=== PATIENT | male | born 1970 | race Two or more races ===

== ENCOUNTER 2021-04-21 21:46 | Inpatient (IN) | payer OTHER ==
[~2021-04-21] VITALS: Ht 175.3 cm; Wt 68.8 kg
--- NOTE | 2021-04-21 23:57 | NUR ---
PT PLACED ON 1L NC DUE TO PT AT 89%
[2021-04-22 00:15] LABS: BASOPHILS % (AUTO) 0 % (0-1); EOSINOPHILS % (AUTO) 3 % (1-7); LYMPHOCYTES % (AUTO) 22 % (22-44); MEAN CORPUSCULAR HEMOGLOBIN 33.3 pg (27.5-34.5); MEAN CORPUSCULAR HGB CONC 35.4 g/dL (33.2-36.2); MEAN PLATELET VOLUME 9.8 fL (7.4-10.4); MICROSCOPIC AUTO; MONOCYTES % (AUTO) 12 % (2-9); NEUTROPHILS % (AUTO) 63 % (42-75); PLATELET COUNT 179 x10^3/uL (130-400); RED BLOOD COUNT 4.97 x10^6/uL (4.38-5.82); RED CELL DISTRIBUTION WIDTH 12.5 % (9.4-14.8)
[2021-04-22 00:16] LABS: MD NO
--- NOTE | 2021-04-22 00:17 | NUR ---
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
[2021-04-22 00:18] LABS: ALANINE AMINOTRANSFERASE 16 U/L (12-78); ANION GAP 10 mmol/L (5-15); CALCIUM 8.7 mg/dL (8.5-10.1); CHLORIDE 102 mmol/L (98-107); CREATININE 0.77 mg/dL (0.7-1.3)
[2021-04-22 00:20] LABS: ALKALINE PHOSPHATASE 90 U/L (45-117); BILIRUBIN,TOTAL 0.5 mg/dL (0.2-1.0); TOTAL PROTEIN 7.9 g/dL (6.4-8.2)
--- NOTE | 2021-04-22 00:30 | NUR ---
First contact with patient: patient presents to ER c/o SOB since yesterday. Patient reports fevers x greater than 1 week. +dry cough. Denies known exposure to COVID; has not received COVID vaccine. Denies resp hx. Patient RA sat 88%. Placed on O2 at 3lpm via NC; SPO2 94%.
[2021-04-22] MEDS ORDERED: IBUPROFEN 600 MG TABLET ONE (00:35)
[2021-04-22] MEDS ORDERED: ALBUTEROL/IPRATROPIUM 2.5MG/0.5MG, 3 ML ONE (00:35)
--- NOTE | 2021-04-22 00:42 | NUR ---
Breathing tx initiated. Patient tolerating well.
[2021-04-22] MEDS ORDERED: BENZONATATE 100 MG CAPSULE ONE (00:46)
[2021-04-22] MEDS ORDERED: CEFTRIAXONE 500 MG in DEXTROSE 5% 50 ML IV SCH (01:00)
[2021-04-22] MEDS: CEFTRIAXONE 1,000 MG in DEXTROSE 5% 50 ML IV SCH (01:00)
[2021-04-22] MEDS ORDERED: IBUPROFEN 600 MG TABLET PO ONE (01:00)
[2021-04-22] MEDS ORDERED: AZITHROMYCIN 500 MG in SODIUM CHLORIDE 0.9% 250 ML IV ONE (01:00)
[2021-04-22] MEDS ORDERED: SODIUM CHLORIDE FLUSH 10ML SYR IVF ONE (01:00)
[2021-04-22] MEDS ORDERED: SODIUM CHLORIDE 0.9% 1,000ML IVBOLUS ONE (01:00)
[2021-04-22] MEDS ORDERED: ALBUTEROL/IPRATROPIUM 2.5MG/0.5MG, 3 ML NPPB ONE (01:00)
[2021-04-22] MEDS ORDERED: BENZONATATE 100 MG CAPSULE PO ONE (01:00)
[2021-04-22] MEDS ORDERED: AZITHROMYCIN 500 MG in SODIUM CHLORIDE 0.9% 250 ML IV SCH (02:00)
--- NOTE | 2021-04-22 02:55 | NUR ---
REPORT TO JACINTO PT TO ROOM WITH TECH
[2021-04-22] MEDS ORDERED: MELATONIN 5 MG TABLET PO PRN (03:00)
[2021-04-22] MEDS ORDERED: OXYcodone IR 5MG TABLET PO PRN (03:00)
[2021-04-22] MEDS ORDERED: ONDANSETRON 2MG/ML, 2ML IVPush PRN (03:00)
[2021-04-22] MEDS ORDERED: TEMAZEPAM 15 MG CAPSULE PO PRN (03:00)
[2021-04-22] MEDS ORDERED: BISACODYL 10 MG SUPP PR PRN (03:00)
[2021-04-22] MEDS ORDERED: hydrALAzine 20 MG/ML, 1ML IVPush PRN (03:00)
[2021-04-22] MEDS ORDERED: ACETAMINOPHEN 325 MG TABLET PO PRN (03:00)
[2021-04-22] MEDS ORDERED: POLYETHYLENE GLYCOL 17 GM PACKET PO PRN (03:00)
[2021-04-22] MEDS ORDERED: LORazepam 2 MG/ML, 1ML IVPush PRN (03:00)
[2021-04-22] MEDS ORDERED: DOCUSATE 100 MG CAPSULE PO PRN (03:00)
[2021-04-22 03:19] VITALS: BP 118/80
[2021-04-22 07:58] VITALS: BP 148/87
[2021-04-22] MEDS: ASCORBIC ACID 500 MG TABLET PO SCH ×2 (08:51→16:46)
[2021-04-22] MEDS: CHOLECALCIFEROL 5,000u TAB PO SCH (08:52)
[2021-04-22] MEDS: DEXAMETHASONE 4 MG/ML, 1ML IV SCH (08:52)
[2021-04-22] MEDS: ZINC SULFATE 220 MG CAPSULE PO SCH (08:52)
[2021-04-22] MEDS: FAMOTIDINE 20 MG TABLET PO SCH ×2 (08:52→21:00)
[2021-04-22] MEDS: ENOXAPARIN 40 MG/0.4 ML SQ SCH (08:53)
[2021-04-22] MEDS ORDERED: DEXTROSE 5% IV SCH (09:00)
[2021-04-22] MEDS ORDERED: CEFTRIAXONE IV SCH (09:00)
[2021-04-22] MEDS: INSULIN LISPRO 100 UNITS/ML, PEN SQ-INSULIN SCH ×3 (11:51→21:00)
[2021-04-22 14:20] VITALS: BP 126/82
[2021-04-22 19:24] VITALS: BP 152/95
[2021-04-23 00:22] VITALS: BP 143/98
[2021-04-23] MEDS: CEFTRIAXONE 1,000 MG in DEXTROSE 5% 50 ML IV SCH (00:55)
[2021-04-23] MEDS: AZITHROMYCIN 500 MG in SODIUM CHLORIDE 0.9% 250 ML IV SCH (02:04)
[2021-04-23 05:49] LABS: ANION GAP 13 mmol/L (5-15); CALCIUM 8.6 mg/dL (8.5-10.1); CHLORIDE 105 mmol/L (98-107)
[2021-04-23 05:51] LABS: BASOPHILS % (AUTO) 0 % (0-1); EOSINOPHILS % (AUTO) 1 % (1-7); LYMPHOCYTES % (AUTO) 23 % (22-44); MEAN CORPUSCULAR HEMOGLOBIN 33.1 pg (27.5-34.5); MEAN CORPUSCULAR HGB CONC 35.5 g/dL (33.2-36.2); MEAN PLATELET VOLUME 8.8 fL (7.4-10.4); MONOCYTES % (AUTO) 18 % (2-9); NEUTROPHILS % (AUTO) 59 % (42-75); PLATELET COUNT 205 x10^3/uL (130-400); RED BLOOD COUNT 4.36 x10^6/uL (4.38-5.82); RED CELL DISTRIBUTION WIDTH 12.5 % (9.4-14.8)
[2021-04-23 06:16] LABS: MD NO
[2021-04-23 07:44] VITALS: BP 138/84
[2021-04-23] MEDS: DEXAMETHASONE 4 MG/ML, 1ML IV SCH (08:05)
[2021-04-23] MEDS: FAMOTIDINE 20 MG TABLET PO SCH ×2 (08:06→21:55)
[2021-04-23] MEDS: ASCORBIC ACID 500 MG TABLET PO SCH ×2 (08:06→16:53)
[2021-04-23] MEDS: CHOLECALCIFEROL 5,000u TAB PO SCH (08:06)
[2021-04-23] MEDS: ZINC SULFATE 220 MG CAPSULE PO SCH (08:06)
[2021-04-23] MEDS: ENOXAPARIN 40 MG/0.4 ML SQ SCH (08:06)
[2021-04-23] MEDS: INSULIN LISPRO 100 UNITS/ML, PEN SQ-INSULIN SCH ×4 (08:07→22:47)
[2021-04-23 15:33] VITALS: BP 145/86
[2021-04-23] MEDS ORDERED: INSULIN GLARGINE 100 UNITS/ML, PEN SQ-INSULIN SCH (21:00)
[2021-04-23 21:59] VITALS: BP 109/75
[2021-04-23 22:02] VITALS: BP 118/79
[2021-04-24 00:35] VITALS: BP 111/73
[2021-04-24] MEDS: CEFTRIAXONE 1,000 MG in DEXTROSE 5% 50 ML IV SCH (01:21)
[2021-04-24] MEDS: AZITHROMYCIN 500 MG in SODIUM CHLORIDE 0.9% 250 ML IV SCH (02:17)
[2021-04-24 07:48] VITALS: BP 117/80
[2021-04-24] MEDS: ENOXAPARIN 40 MG/0.4 ML SQ SCH (08:16)
[2021-04-24] MEDS: INSULIN LISPRO 100 UNITS/ML, PEN SQ-INSULIN SCH ×4 (08:16→22:32)
[2021-04-24] MEDS: CHOLECALCIFEROL 5,000u TAB PO SCH (08:19)
[2021-04-24] MEDS: FAMOTIDINE 20 MG TABLET PO SCH (08:19)
[2021-04-24] MEDS: ASCORBIC ACID 500 MG TABLET PO SCH ×2 (08:19→16:57)
[2021-04-24] MEDS: ZINC SULFATE 220 MG CAPSULE PO SCH (08:19)
[2021-04-24] MEDS: DEXAMETHASONE 4 MG/ML, 1ML IV SCH (08:19)
[2021-04-24 12:45] VITALS: BP 100/73
[2021-04-24] MEDS: OMEPRAZOLE 20 MG CAPSULE.DR PO SCH (16:57)
[2021-04-24] MEDS ORDERED: INSULIN GLARGINE 100 UNITS/ML, PEN SQ-INSULIN SCH (21:00)
[2021-04-24 22:10] VITALS: BP 163/94
[2021-04-24 22:12] VITALS: BP 165/95
[2021-04-25 01:10] VITALS: BP 130/85
[2021-04-25] MEDS: CEFTRIAXONE 1,000 MG in DEXTROSE 5% 50 ML IV SCH (01:10)
[2021-04-25] MEDS: OMEPRAZOLE 20 MG CAPSULE.DR PO SCH ×2 (05:54→16:59)
[2021-04-25] MEDS ORDERED: DEXAMETHASONE 4 MG TABLET PO SCH (07:30)
[2021-04-25] MEDS: INSULIN LISPRO 100 UNITS/ML, PEN SQ-INSULIN SCH ×3 (07:47→16:58)
[2021-04-25 07:50] VITALS: BP 100/65
[2021-04-25] MEDS: CHOLECALCIFEROL 5,000u TAB PO SCH (08:22)
[2021-04-25] MEDS: ASCORBIC ACID 500 MG TABLET PO SCH ×2 (08:22→16:59)
[2021-04-25] MEDS: ZINC SULFATE 220 MG CAPSULE PO SCH (08:22)
[2021-04-25] MEDS: ENOXAPARIN 40 MG/0.4 ML SQ SCH (08:22)
[2021-04-25] MEDS ORDERED: METF500T PO ×3 (12:27→13:57)
[2021-04-25] MEDS ORDERED: DEXA4TAB66 PO ×3 (12:29→13:57)
[2021-04-25 14:40] VITALS: BP 142/70
== END 2021-04-25 18:18 | disposition home or self-care (01) | DRG 177 ==
LOC: ED 04-22 00:32 → EDIP 04-22 02:20 → 3N 04-22 03:05
PROVIDERS: ADMIT Internal Medicine; ATTEND Hospitalist
DX: U07.1 COVID-19 (principal); J12.82 Pneumonia due to coronavirus disease 2019; J96.01 Acute respiratory failure with hypoxia; E11.9 Type 2 diabetes mellitus without complications; K21.9 Gastro-esophageal reflux disease without esophagitis
CPT/HCPCS: 36415; 71046; 80048; 80053; 81001; 82947; 82962; 83036; 83605; 83615; 83735; 84100; 85025; 85379; 86140; 87040; G0378; J0456; J0696; J1100; J1650; U0005; J1815; J7030; J7050; U0003